=== PATIENT | male | born 2000 | race Caucasian/White ===

== ENCOUNTER 2022-08-19 14:45 | Emergency (ER) | payer BC ==
[~2022-08-19] VITALS: Ht 185.4 cm; Wt 105.0 kg
[2022-08-19] MEDS ORDERED: NAPR500T7 MT (23:43)
[2022-08-19] MEDS ORDERED: LIDO700A15 TP (23:43)
[2022-08-19] MEDS ORDERED: LIDOCAINE 5% PATCH TOP SCH (23:45)
[2022-08-19] MEDS ORDERED: IBUPROFEN 600MG TABLET PO ONE (23:45)
[2022-08-19 23:51] VITALS: BP 156/93
== END 2022-08-20 00:19 | disposition home or self-care (01) ==
LOC: ER 14:45
DX: S33.5XXA Sprain of ligaments of lumbar spine, initial encounter (principal); S13.4XXA Sprain of ligaments of cervical spine, initial encounter; V49.59XA Passenger injured in collision with other motor vehicles in traffic accident, initial encounter; Y93.89 Activity, other specified; Y92.89 Other specified places as the place of occurrence of the external cause; Y99.8 Other external cause status
CPT/HCPCS: 99283